=== PATIENT | male | born 1980 | race Two or more races ===

== ENCOUNTER 2020-03-03 14:54 | Emergency (ER) | payer MEDICAID ==
[2020-03-03] MEDS ORDERED: Sodium Chloride 0.9% 1,000 ML IV ONE (15:06)
[2020-03-03] MEDS ORDERED: Ondansetron 4 MG/2 ML SDV IVPUSH ONE (15:06)
[2020-03-03] MEDS ORDERED: Morphine 2 MG/ML Syringe IVPUSH ONE ×2 (15:10→17:10)
--- NOTE | 2020-03-03 15:12 | EDM.PDOC ---
ED HPI GENERAL MEDICAL PROBLEM - General Chief Complaint: Abdominal Pain Stated Complaint: PANCREATITIS Time Seen by Provider: 03/03/20 15:05 Source of Information: Reports: Patient History Limitations: Reports: No Limitations - History of Present Illness INITIAL COMMENTS - FREE TEXT/NARRATIVE: HISTORY AND PHYSICAL: History of present illness: Patient is a 39-year-old male who presents to the emergency room with complaints of right upper quadrant/epigastric pain associated with nausea and vomiting. Patient states approximately 7 months ago while in [place] he had pancreatitis which hospitalized him for over 1 week. 2 days ago started to notice pain that was very similar to his previous pancreatitis and decided to come to the emergency room as it was not improving. He denies any alcohol or drug use. Patient denies any fever, chills, headache, change in vision, syncope or near syncope. Denies any chest pain, back pain, shortness of breath or cough. Denies any diarrhea, constipation or dysuria. Has not noted any blood in urine or stool. Patient has been eating and drinking appropriately. Review of systems: As per history of present illness and below otherwise all systems reviewed and negative. Past medical history: As per history of present illness and as reviewed below otherwise noncontributory. Surgical history: As per history of present illness and as reviewed below otherwise noncontributory. Social history: See social history for further information Family history: As per history of present illness and as reviewed below otherwise noncontributory. Physical exam: General: Well-developed and well-nourished 39-year-old male. Alert and oriented. Nontoxic-appearing and in no acute distress. HEENT: Atraumatic, normocephalic, pupils equal and reactive bilaterally, negative for conjunctival pallor or scleral icterus, mucous membranes moist, TMs normal bilaterally, throat clear, neck supple, nontender, trachea midline. No drooling or trismus noted. No meningeal signs. No hot potato voice noted. Lungs: Clear to auscultation, breath sounds equal bilaterally, chest nontender. Heart: S1S2, regular rate and rhythm without overt murmur Abdomen: Soft, nondistended, right upper quadrant and epigastric tenderness. Negative for masses or hepatosplenomegaly. Negative for costovertebral tenderness. Skin: Intact, warm, dry. No lesions or rashes noted. Extremities: Atraumatic, moves all extremities per self without difficulty or deficits, negative for cords or calf pain. Neurovascular unremarkable. Neuro: Awake, alert, oriented. Cranial nerves II through XII unremarkable. Cerebellum unremarkable. Motor and sensory unremarkable throughout. Exam nonfocal. Notes: 3 mm calculus right upper ureter causing mild right-sided hydronephrosis and hydroureter. 3 mm nonobstructing stone in the lower left pole. This information was shared with the patient. We discussed medication management and following up with urology. Supportive care measures were reviewed and discussed. Voices understanding and is agreeable to plan of care. Denies any further questions or concerns at this time. Diagnostics: CBC, CMP, UA, ETOH, Lipase Therapeutics: IV fluids, Zofran, Morphine, Flomax Prescription: [place], Zofran, Flomax, Strainer Impression: Kidney Stone Plan: 1. Take the medications as directed. Increase your oral fluids. Strain your urine (to confirm passing of kidney stone) 2. Tylenol and/or Ibuprofen as needed for pain. [place] for moderate to severe pain. This medication does cause drowsiness, so do not take while driving or needed to be functioning outside the house. 3. Follow up with Urology, Dr Gallagher, as we discussed. Return to the ED as needed and as discussed. Definitive disposition and diagnosis as appropriate pending reevaluation and review of above. abdomen Pain Score (Numeric/FACES): 3 - Related Data Allergies Allergy/AdvReac Type Severity Reaction Status Date / Time No Known Allergies Allergy Verified 03/03/20 15:06 Home Meds: Home Meds Acetaminophen/HYDROcodone [[place] 325-5 MG] 1 dose PO Q4H #20 tablet 03/03/20 [Rx ] Lisinopril [Zestril] 10 mg PO DAILY 03/03/20 [History] Ondansetron [Zofran ODT] 4 mg PO Q6H PRN #8 tab.dis 03/03/20 [Rx] Tamsulosin [Tamsulosin 24 Hr] 0.4 mg PO DAILY #10 cap.er 03/03/20 [Rx] ED ROS GENERAL - Review of Systems Review Of Systems: Comprehensive ROS is negative, except as noted in HPI. ED EXAM, GI/ABD - Physical Exam Exam: See Below (See dictation) Course - Vital Signs Last Recorded V/S: Last Vital Signs Temp 97.3 F 04/10/20 15:21 Pulse 75 03/03/20 15:35 Resp 18 03/03/20 15:35 BP 132/80 03/03/20 15:35 Pulse Ox 96 03/03/20 15:35 - Orders/Labs/Meds Orders: Active Orders 24 hr Category Date Time Status Morphine Med 03/03/20 17:10 Once 2 mg IVPUSH ONETIME ONE Tamsulosin [Flomax] Med 03/03/20 17:10 Once 0.4 mg PO ONETIME ONE Medication Orders Morphine Sulfate (Morphine) 2 mg IVPUSH ONETIME ONE Stop: 03/03/20 17:11 Tamsulosin HCl (Flomax) 0.4 mg PO ONETIME ONE Stop: 03/03/20 17:11 Labs: Laboratory Tests 03/03/20 03/03/20 03/03/20 Range/Units 15:10 15:25 15:25 WBC 8.10 (4.0-11.0) K/uL RBC 4.45 L (4.50-5.90) M/uL Hgb 13.1 (13.0-17.0) g/dL Hct 41.6 (38.0-50.0) % MCV 93.5 (80.0-98.0) fL MCH 29.4 (27.0-32.0) pg MCHC 31.5 (31.0-37.0) g/dL RDW Std Deviation 45.2 (28.0-62.0) fl RDW Coeff of May 13 (11.0-15.0) % Plt Count 244 (150-400) K/uL MPV 9.70 (7.40-12.00) fL Neut % (Auto) 65.3 (48.0-80.0) % Lymph % (Auto) 25.7 (16.0-40.0) % [place] % (Auto) 6.8 (0.0-15.0) % Eos % (Auto) 2.0 (0.0-7.0) % Baso % (Auto) 0.2 (0.0-1.5) % Neut # (Auto) 5.3 (1.4-5.7) K/uL Lymph # (Auto) 2.1 (0.6-2.4) K/uL Aiken # (Auto) 0.6 (0.0-0.8) K/uL Eos # (Auto) 0.2 (0.0-0.7) K/uL Baso # (Auto) 0.0 (0.0-0.1) K/uL Nucleated RBC % 0.0 /100WBC Nucleated RBCs # 0 K/uL Sodium 144 (136-148) mmol/L Potassium 3.8 (3.5-5.1) mmol/L Chloride 108 H (98-107) mmol/L Carbon Dioxide 26.2 (21.0-32.0) mmol/L BUN 18 (7.0-18.0) mg/dL Creatinine 1.1 (0.8-1.3) mg/dL Est Cr Clr Drug Dosing 97.93 mL/min Estimated GFR (MDRD) > 60.0 ml/min Glucose 112 H (74-106) mg/dL Calcium 8.6 (8.5-10.1) mg/dL Total Bilirubin 0.5 (0.2-1.0) mg/dL AST 17 (15-37) IU/L ALT 20 (14-63) IU/L Alkaline Phosphatase 102 (46-116) U/L Total Protein 7.3 (6.4-8.2) g/dL Albumin 4.2 (3.4-5.0) g/dL Globulin 3.1 (2.6-4.0) g/dL Albumin/Globulin Ratio 1.4 (0.9-1.6) Lipase 65 L (73-393) U/L Urine Color YELLOW Urine Appearance HAZY Urine pH 6.0 (5.0-8.0) Ur Specific Hart 1.020 (1.001-1.035) Urine Protein NEGATIVE (NEGATIVE) mg/dL Urine Glucose (UA) NEGATIVE (NEGATIVE) mg/dL Urine Ketones NEGATIVE (NEGATIVE) mg/dL Urine Occult Blood LARGE H (NEGATIVE) Urine Nitrite NEGATIVE (NEGATIVE) Urine Bilirubin NEGATIVE (NEGATIVE) Urine Urobilinogen 0.2 (<2.0) EU/dL Ur Leukocyte Esterase NEGATIVE (NEGATIVE) Urine RBC 25-30 (0-2/HPF) Urine WBC 1-3 (0-5/HPF) Ur Epithelial Cells FEW (NONE-FEW) Urine Bacteria RARE (NEGATIVE) Urine Mucus LIGHT (NONE-MOD) Ethyl Alcohol < 3.0 mg/dL Meds: Medications Generic Name Dose Route Start Last Admin Trade Name Freq PRN Reason Stop Dose Admin Morphine Sulfate 2 mg 03/03/20 17:10 Morphine IVPUSH 03/03/20 17:11 ONETIME ONE Tamsulosin HCl 0.4 mg 03/03/20 17:10 Flomax PO 03/03/20 17:11 ONETIME ONE Discontinued Medications Generic Name Dose Route Start Last Admin Trade Name Freq PRN Reason Stop Dose Admin Sodium Chloride 1,000 mls @ 999 mls/hr 03/03/20 15:06 03/03/20 15:26 Normal Saline IV 03/03/20 16:06 999 mls/hr STAT ONE Administration Morphine Sulfate 2 mg 03/03/20 15:10 03/03/20 15:34 Morphine IVPUSH 03/03/20 15:11 2 mg ONETIME ONE Administration Ondansetron HCl 4 mg 03/03/20 15:06 03/03/20 15:31 Zofran IVPUSH 03/03/20 15:07 4 mg ONETIME ONE Administration Departure - Departure Time of Disposition: 17:12 Disposition: Home, Self-Care 01 Clinical Impression: Kidney stones - Discharge Information Prescriptions: Acetaminophen/HYDROcodone [[place] 325-5 MG] 1 dose PO Q4H #20 tablet Ondansetron [Zofran ODT] 4 mg PO Q6H PRN #8 tab.dis PRN Reason: Nausea Tamsulosin [Tamsulosin 24 Hr] 0.4 mg PO DAILY #10 cap.er Instructions: Kidney Stones, [id number] Referrals: PCP,Not In Area [Primary Care Provider] - Forms: ED Department Discharge Additional Instructions: The following information is given to patients seen in the emergency department who are being discharged to home. This information is to outline your options for follow-up care. We provide all patients seen in our emergency department with a follow-up referral. The need for follow-up, as well as the timing and circumstances, are variable depending upon the specifics of your emergency department visit. If you don't have a primary care physician on staff, we will provide you with a referral. We always advise you to contact your personal physician following an emergency department visit to inform them of the circumstance of the visit and for follow-up with them and/or the need for any referrals to a consulting specialist. The emergency department will also refer you to a specialist when appropriate. This referral assures that you have the opportunity for follow-up care with a specialist. All of these measure are taken in an effort to provide you with optimal care, which includes your follow-up. Under all circumstances we always encourage you to contact your private physician who remains a resource for coordinating your care. When calling for follow-up care, please make the office aware that this follow-up is from your recent emergency room visit. If for any reason you are refused follow-up, please contact the [facility] Emergency Department at and asked to speak to the emergency department charge nurse. [facility] Primary Care [address] [place] [id number] [facility] Specialty Care - Urology [address] [place] [id number] 1. Take the medications as directed. Increase your oral fluids. Strain your urine (to confirm passing of kidney stone) 2. Tylenol and/or Ibuprofen as needed for pain. [place] for moderate to severe pain. This medication does cause drowsiness, so do not take while driving or needed to be functioning outside the house. 3. Follow up with Urology, Dr Gallagher, as we discussed. Return to the ED as needed and as discussed. Sepsis Event Note - Evaluation Sepsis Screening Result: No Definite Risk - Focused Exam Vital Signs: Vital Signs Temp Pulse Resp BP Pulse Ox 03/03/20 15:35 75 18 132/80 96 03/03/20 15:21 97.3 F 78 16 148/87 H 97 03/03/20 14:57 96.3 F L 86 18 169/84 H 96 Date Exam was Performed: 03/03/20 Time Exam was Performed: 17:10 - My Orders Last 24 Hours: My Active Orders 03/03/20 17:10 Morphine 2 mg IVPUSH ONETIME ONE Tamsulosin [Flomax] 0.4 mg PO ONETIME ONE - Assessment/Plan Last 24 Hours: My Active Orders 04/10/20 17:10 Morphine 2 mg IVPUSH ONETIME ONE Tamsulosin [Flomax] 0.4 mg PO ONETIME ONE
[2020-03-03 16:22] LABS: BLOOD UREA NITROGEN,BUN 18 mg/dL (7.0-18.0); CARBON DIOXIDE,CO2 26.2 mmol/L (21.0-32.0); CHLORIDE,CL 108 mmol/L (98-107); GLUCOSE RANDOM 112 mg/dL (74-106); POTASSIUM,K 3.8 mmol/L (3.5-5.1); SODIUM,NA 144 mmol/L (136-148)
[2020-03-03 16:31] LABS: LIPASE 65 U/L (73-393)
--- NOTE | 2020-03-03 17:00 | CT ---
INDICATION: Abdominal pain. COMPARISON: None. TECHNIQUE: CT abdomen and pelvis without intravenous or oral contrast; coronal and sagittal reformats. FINDINGS: A 3 mm calcification identified in the right upper ureter slice 77 series 201 causing mild right-sided hydronephrosis and hydroureter. Tiny nonobstructing renal calculi lower pole calices left kidney. No perinephric pathology on either side. No abnormal intra pulmonary nodular densities through the lung bases. No evidence of pleural effusion. Normal size cardiac silhouette without any evidence of pericardial effusion. No focal hepatic or splenic pathology. No pancreatic pathology. Gallbladder is unremarkable. No adrenal pathology. No retroperitoneal lymphadenopathy. No evidence of abdominal or pelvic ascites. No pneumoperitoneum or intestinal obstruction. Normal appendix. IMPRESSION: 1. A 3 mm calculus right upper ureter causing mild right-sided hydronephrosis and hydroureter . 2. 2- 3 mm nonobstructing calculi lower pole calyx left kidney. 3. Normal appendix. Please note that all CT scans at this facility use dose modulation, iterative reconstruction, and/or weight-based dosing when appropriate to reduce radiation dose to as low as reasonably achievable. Dictated by Amari Banuelos MD @ Mar 03 2020 4:55PM Signed by Dr. Amari Banuelos @ Mar 03 2020 4:59PM
[2020-03-03] MEDS ORDERED: Tamsulosin 0.4 MG Cap.ER PO ONE (17:10)
== END 2020-03-03 17:36 | disposition home or self-care (01) ==
LOC: MW.ED 14:54
DX: N13.2 Hydronephrosis with renal and ureteral calculous obstruction (principal); Z79.899 Other long term (current) drug therapy
CPT/HCPCS: 36415; 74176; 80053; 80307; 81001; 83690; 85025; 96361; 96374; 96375; 96376; 99284; A9270; J2270; J2405; J7030; 99283